=== PATIENT | female | born 1985 ===

== ENCOUNTER 2020-02-13 10:23 | Outpatient (REF) | payer OTHER, SELFPAY | END 2020-02-13 10:24 | disposition home or self-care (01) | LOC: HO.LAB 10:23 | PROVIDERS: Visit Provider Internal Medicine | DX: Z20.828 Contact with and (suspected) exposure to other viral communicable diseases (principal) | CPT/HCPCS: C9803; U0003 ==

== ENCOUNTER 2021-11-02 08:11 | Emergency (ER) | payer OTHER, SELFPAY ==
--- NOTE | ~2021-11-02 | CT_ITS ---
EXAMINATION: CT SOFT TISSUE NECK WITH CONTRAST CLINICAL INFORMATION: Right-sided tonsillar swelling and pain. Question abscess. COMPARISON: None TECHNIQUE: Following the administration of 100 mL of Omnipaque 300 intravenous contrast, helical imaging was performed in the axial plane with generation of coronal and sagittal reformatted images. This CT examination was performed using dose optimization techniques as appropriate, variously including the following: *Automated exposure control *Adjustment of mA and/or kV according to patient size (this includes techniques or standardized protocols for targeted exams where dose is matched to indication/reason for exam; i.e. extremities or head) *Use of iterative reconstruction technique DLP: 1255 mGy-cm FINDINGS: The palatine tonsils appear hyperemic but without fluid collection to suggest peritonsillar abscess. Bilateral palatine tonsilloliths are noted. The laryngeal contours appear normal. The vocal folds are symmetric. Enlarged reactive bilateral level 2A lymph nodes are seen. The parotid and submandibular glands appear normal. There is a subcentimeter nodule in the right lobe of the thyroid gland (below size threshold for dedicated ultrasound evaluation recommendation). The upper lungs are clear. Minimal degenerative changes are seen at the C6-C7 level. Imaged intracranial contents appear normal. The major neck vessels demonstrate normal enhancement. CT/CT soft tissue neck w IV con IMPRESSION: Mild hyperemia seen involving the palatine tonsils, which could represent cellulitis. No evidence of peritonsillar abscess. Reactive bilateral cervical lymphadenopathy at level IIa.
[2021-11-02 08:27] VITALS: BP 139/73; PULSE 78; RESP 18; TEMP 36.3; O2SAT 97; BMI 47.8
[2021-11-02 09:08] LABS: Strep A Nucleic Acid Negative (Negative)
--- NOTE | 2021-11-02 09:25 | ED.URI ---
HPI - URI/Sore Throat General Chief Complaint: Upper Respiratory Symptoms Stated Complaint: ? Strep Throat Time Seen by Provider: 11/02/21 09:19 Source: patient Mode of arrival: ambulatory Limitations: no limitations History of Present Illness HPI Narrative: Patient presents emergency department for evaluation of sore throat. Onset was 5 days ago. Has become increasingly worse. She is now having pain felt to right side of her jaw as well as the right ear. Reports history of similar pain in the past, her she needed to be admitted to [facility] for IV antibiotics and drainage. Has tried [id number] medications without significant improvement. Has associated fatigue as well. Denies fevers, chills, chest pain, palpitations, shortness of breath, difficulty breathing, nausea, vomiting, abdominal pain Related Data Previous Rx's Medication Instructions Recorded amoxicillin 500 mg capsule 500 mg PO Q12H 10 days #20 caps 11/02/21 Allergies Allergy/AdvReac Type Severity Reaction Status Date / Time No Known Allergies Allergy Unverified 10/29/19 19:29 Review of Systems Review of Systems: Constitutional: No fever. No chills. No weakness. Positive fatigue. ENT/ Mouth: Positive Ear Pain, no Nasal Congestion, positive sore throat, No Rhinorrhea, No Swallowing Difficulty Skin: No rash or itching. Cardiovascular: No chest pain. No palpitations. Respiratory: No shortness of breath. No cough. No sputum production. Gastrointestinal: No nausea. No vomiting. No diarrhea. No abdominal pain. Genitourinary: No burning micturition. No urinary frequency. Neurologic: No headache. No dizziness. No syncope. No numbness or tingling in the extremities. Musculoskeletal: No muscle pain. No back pain. No joint pain or stiffness. Yes all other systems are reviewed and are negative [facility] Past Medical History Attestation statement: The following information was validated with the patient. Source: old records reviewed Social History Social History Advance Directives: No Advance Directives Information Provided: No Physical Exam Vital Signs: Vital Signs: Last Vital Signs Temp 99.3 F 11/02/21 11:40 Pulse 76 11/02/21 11:40 Resp 18 11/02/21 11:40 BP 146/72 H 11/02/21 11:40 Pulse Ox 98 11/02/21 11:40 O2 Del Method 11/02/21 11:40 BMI result Body Mass Index 47.8 Vital signs have been reviewed as normal and appeared to be correct. Blood pressure normal.? Heart rate normal.? Respiration rate normal. Temperature normal.? Oxygen saturation normal. Appearance: Alert.?Oriented to person, place and time. No acute distress.?Normal affect. Eyes: Pupils equal, round and reactive to light.? ENT: TM normal bilaterally. Pharynx erythematous, right tonsillar hypertrophy 3+ with white exudate, mild midline uvula deviation towards the left? Neck: Normal inspection.? Neck supple.??Positive cervical adenopathy CVS: Heart sounds normal. Normal heart rate and rhythm.? Pulses normal.?? Respiratory: No respiratory distress.? Lung sounds clear to auscultation bilaterally?? Abdomen: Soft and non-tender. Normoactive bowel sounds. Skin: Skin warm and dry.? Normal skin color.? ? Extremities: No lower extremity edema.? Neuro: Moves all extremities spontaneously. Sensation intact bilaterally. No motor deficits. Ambulates with normal steady gait. Course Course Course Narrative: Patient is a 36-year-old female presenting to emergency department for evaluation of a sore throat. Group a strep testing was negative. Given presence of tonsillar hypertrophy and exudate suspect bacterial infection at this time, will obtain CT of the soft tissues of neck to exclude peritonsillar/retropharyngeal abscess. Basic labs to be obtained, will trial Decadron oral liquid for pain at this time. Disposition pending results. Reevaluation(s) Reevaluation #1: CBC reveals no leukocytosis. CMP is unremarkable. CT reveals no evidence of peritonsillar abscess. Discussed these findings with patient. Advise for plan of care for discharge home, treatment with amoxicillin twice daily, acetaminophen/ibuprofen as needed for pain. Reviewed worrisome signs and symptoms return back to emergency department for. All questions were answered, patient was discharged home in stable condition. MDM - URI/Sore Throat Medical Records Attestation: I reviewed the patient's medical records. Lab Data Attestation: I reviewed the patient's lab results. Result diagrams: 11/02/21 10:34 11/02/21 10:34 Labs: Lab Results 11/02/21 11/02/21 11/02/21 Range/Units 08:35 10:34 10:34 WBC 7.8 (4.8-10.8) X10*3/uL RBC 4.74 (4.20-5.50) X10*6/uL Hgb 14.5 (12.0-16.0) g/dl Hct 43.6 (37.0-47.0) % MCV 92.0 (80.0-98.0) fL MCH 30.6 (27.0-33.0) pg MCHC 33.3 (31.0-35.0) g/dl RDW 12.9 (11.0-16.0) % Plt Count 229 (160-400) X10*3/uL MPV 10.3 (9.4-12.3) fL Immature Gran % (Auto) 0.5 H (0.0-0.4) % Neut % (Auto) 78.6 H (45-73) % Lymph % (Auto) 12.5 L (20-40) % [place] % (Auto) 6.6 (2-11) % Eos % (Auto) 1.5 (0-4) % Baso % (Auto) 0.3 (0-2) % Lymph # (Auto) 1.0 L (1.2-4.9) X10*3/uL [place] # (Auto) 0.5 (0.1-1.2) X10*3/uL Eos # (Auto) 0.1 (0.0-0.4) X10*3/uL Baso # (Auto) 0.0 (0.0-0.2) X10*3/uL Abs Immat Gran (auto) 0.04 H (0.00-0.03) X10*3/uL Absolute Neuts (auto) 6.1 (2.0-8.3) x10*3/uL Absolute Nucleated RBC 0.000 (0.0-0.012) X10*3/uL Nucleated RBC % (auto) 0.0 (0.0-0.2) /100WBC Sodium 138 (135-145) mmol/L Potassium 4.2 (3.3-5.1) mmol/L Chloride 103 (96-108) mmol/L Carbon Dioxide 25 (22-29) mmol/L Anion Gap 14 (12-20) BUN 8 L (9-16) mg/dL Creatinine 0.81 (0.5-1.4) mg/dL Estim Creat Clear Calc 121.9 Estimated GFR > 60 Random Glucose 102 (60-115) mg/dL Calcium 8.9 (8.4-10.2) mg/dL Total Bilirubin 0.5 (0.0-1.0) mg/dL AST 18 (5-31) U/L ALT 21 (0-31) U/L Alkaline Phosphatase 114 (39-117) U/L Total Protein 7.1 (6.5-8.0) g/dL Albumin 4.1 (3.5-5.0) g/dL Beta HCG, Quant mIU/mL S. pyogenes GrpA [place] Negative (Negative) 11/02/21 Range/Units 10:34 WBC (4.8-10.8) X10*3/uL RBC (4.20-5.50) X10*6/uL Hgb (12.0-16.0) g/dl Hct (37.0-47.0) % MCV (80.0-98.0) fL MCH (27.0-33.0) pg MCHC (31.0-35.0) g/dl RDW (11.0-16.0) % Plt Count (160-400) X10*3/uL MPV (9.4-12.3) fL Immature Gran % (Auto) (0.0-0.4) % Neut % (Auto) (45-73) % Lymph % (Auto) (20-40) % [place] % (Auto) (2-11) % Eos % (Auto) (0-4) % Baso % (Auto) (0-2) % Lymph # (Auto) (1.2-4.9) X10*3/uL [place] # (Auto) (0.1-1.2) X10*3/uL Eos # (Auto) (0.0-0.4) X10*3/uL Baso # (Auto) (0.0-0.2) X10*3/uL Abs Immat Gran (auto) (0.00-0.03) X10*3/uL Absolute Neuts (auto) (2.0-8.3) x10*3/uL Absolute Nucleated RBC (0.0-0.012) X10*3/uL Nucleated RBC % (auto) (0.0-0.2) /100WBC Sodium (135-145) mmol/L Potassium (3.3-5.1) mmol/L Chloride (96-108) mmol/L Carbon Dioxide (22-29) mmol/L Anion Gap (12-20) BUN (9-16) mg/dL Creatinine (0.5-1.4) mg/dL Estim Creat Clear Calc Estimated GFR Random Glucose (60-115) mg/dL Calcium (8.4-10.2) mg/dL Total Bilirubin (0.0-1.0) mg/dL AST (5-31) U/L ALT (0-31) U/L Alkaline Phosphatase (39-117) U/L Total Protein (6.5-8.0) g/dL Albumin (3.5-5.0) g/dL Beta HCG, Quant < 2 mIU/mL S. pyogenes GrpA [place] (Negative) Imaging Data ct neck: Radiologist's impression: CT/CT soft tissue neck w IV con IMPRESSION:? Mild hyperemia seen involving the palatine tonsils, which could represent cellulitis. No evidence of peritonsillar abscess. Reactive bilateral cervical lymphadenopathy at level IIa. Discharge Plan Discharge Clinical Impression: Pharyngitis Patient Disposition: Home, Self-Care Instructions: Pharyngitis (ED) Additional Instructions: CT scan was normal, no evidence of an abscess or pus collection. You can take ibuprofen 200 mg, 3 tablets (600mg) every 6-8 hours as needed for pain, in addition to Tylenol 500 mg, 2 tablets (1,000mg) every 4-6 hours as needed for pain, but not to exceed 3 doses daily (3,000mg).? Please complete the entire course of antibiotic as prescribed. Return to emergency department any new or worsening symptoms or concerns. Follow up with her primary care provider as needed. Prescriptions: New amoxicillin 500 mg capsule 500 mg PO Q12H 10 Days Qty: 20 0RF
[2021-11-02] MEDS: dexAMETHasone sod phosphate 10 MG/ML VIAL PO (09:46)
[2021-11-02 10:45] LABS: MANUAL DIFF FLAG NO
[2021-11-02 10:46] LABS: Basophils Percent Auto 0.3 % (0-2); Eosinophils Absolute Auto 0.1 X10*3/uL (0.0-0.4); Eosinophils Percent Auto 1.5 % (0-4); Hematocrit 43.6 % (37.0-47.0); Hemoglobin 14.5 g/dl (12.0-16.0); Imm Gran Abs Auto 0.04 X10*3/uL (0.00-0.03); Imm Gran Pct Auto 0.5 % (0.0-0.4); Lymphocytes Percent Auto 12.5 % (20-40); Mean Corpuscular HGB Conc 33.3 g/dl (31.0-35.0); Mean Corpuscular Hemoglobin 30.6 pg (27.0-33.0); Mean Platelet Volume 10.3 fL (9.4-12.3); Monocytes Absolute Auto 0.5 X10*3/uL (0.1-1.2); Monocytes Percent Auto 6.6 % (2-11); Neutrophils Absolute Auto 6.1 x10*3/uL (2.0-8.3); Neutrophils Percent Auto 78.6 % (45-73); Platelet Count 229 X10*3/uL (160-400); Red Blood Count 4.74 X10*6/uL (4.20-5.50); Red Cell Distribution Width 12.9 % (11.0-16.0); White Blood Count 7.8 X10*3/uL (4.8-10.8)
[2021-11-02 11:03] LABS: Alanine Aminotransferase 21 U/L (0-31); Albumin Level 4.1 g/dL (3.5-5.0); Alkaline Phosphatase 114 U/L (39-117); Anion Gap 14 (12-20); Aspartate Amino Transferase 18 U/L (5-31); Bilirubin Total 0.5 mg/dL (0.0-1.0); Blood Urea Nitrogen 8 mg/dL (9-16); Calcium 8.9 mg/dL (8.4-10.2); Carbon Dioxide 25 mmol/L (22-29); Chloride 103 mmol/L (96-108); Creatinine Clr Calc Pharmacy 121.9; Estimated Glomerular Filt Rate > 60; Glucose Random 102 mg/dL (60-115); Potassium 4.2 mmol/L (3.3-5.1); Sodium 138 mmol/L (135-145); Total Protein 7.1 g/dL (6.5-8.0)
[2021-11-02 11:09] LABS: HCG Quantitative < 2 mIU/mL
[2021-11-02 11:40] VITALS: BP 146/72; PULSE 76; RESP 18; TEMP 37.4; O2SAT 98
[2021-11-02] MEDS: iohexoL 350 MG/ML 100 ML INFUS..BTL IV (11:43)
== END 2021-11-02 12:38 | disposition home or self-care (01) ==
PROVIDERS: Nurse Practitioner Family; Emergency Provider Emergency Medicine
DX: J02.9 Acute pharyngitis, unspecified (principal); M54.2 Cervicalgia; Z20.822 Contact with and (suspected) exposure to COVID-19; Z79.899 Other long term (current) drug therapy
CPT/HCPCS: 36415; 70491; 80053; 84702; 85025; 87651; 99282; 99284; J1100; Q9967

== ENCOUNTER 2022-12-26 15:34 | Emergency (ER) | payer MEDICAID, SELFPAY ==
[2022-12-26 16:06] VITALS: BP 144/73; PULSE 80; RESP 16; TEMP 36.3; O2SAT 94; BMI 50.3
--- NOTE | 2022-12-26 16:07 | ED_ITS ---
HPI - Fall General Chief Complaint: Dizziness Stated Complaint: fell down stairs Time Seen by Provider: 12/26/22 16:24 Source: patient Mode of arrival: ambulatory Limitations: no limitations History of Present Illness HPI Narrative: patient is a 37-year-old female Who presents emergency department for evaluation. She reports aunt 12/09/2022 she fell down 1 flight of stairs, approximately 20 stairs. She states that she lost her slipper on the top stair resulting in her tumbling forward. She denies any loss of consciousness. She initially was experiencing right ankle pain which has since resolved and she has been ambulatory with a steady gait. She reports that after a fall she was experiencing a headache and dizziness described as a urine off balance approximately 1 time per week since then. Yesterday her headache was more constant throughout the day and her dizziness. At this time, she denies having any symptoms, reporting that they resolved just before she arrived to the emergency department. She does express concerns of potential , reporting her last menstrual period to be 11/15/2022, she is a G2, P1. At this time she denies headache, dizziness, lightheadedness, vision changes, neck pain, neck stiffness, chest pain, shortness of breath difficulty breathing, nausea, vomiting, numbness or tingling of the extremities, bladder bowel dysfunction, genitourinary symptoms no abnormal vaginal bleeding, Weakness. Related Data Previous Rx's Medication Instructions Recorded amoxicillin 500 mg capsule 500 mg PO Q12H 10 days #20 caps 11/02/21 Allergies Allergy/AdvReac Type Severity Reaction Status Date / Time No Known Allergies Allergy Unverified 10/29/19 19:29 Review of Systems Review of Systems: Yes all other systems are reviewed and are negative [facility] Past Medical History Attestation statement: The following information was validated with the patient. Source: old records reviewed Social History Social History Alcohol intake: current Alcohol intake frequency: a few times a week Smoked in Last 30 Days: No Use of substances other than those prescribed or required for medical reasons: Yes Substance Use Type: Marijuana Advance Directives: No Advance Directives Information Provided: No Physical Exam Vital Signs: Vital Signs: Last Vital Signs Temp 97.3 F 12/26/22 16:06 Pulse 62 11/15/23 16:56 Resp 16 12/26/22 16:06 BP 117/63 12/26/22 16:56 Pulse Ox 94 12/26/22 16:06 O2 Del Method Room Air 12/26/22 16:06 BMI result Body Mass Index 50.3 Appearance: Alert.?Oriented to person, place and time. No acute distress.?Normal affect. Eyes: Pupils equal, round and reactive to light.? ENT: Pharynx normal.?? Neck: Normal inspection.? Neck supple.?? CVS: Heart sounds normal. Normal heart rate and rhythm.? Pulses normal.?? Respiratory: No respiratory distress.? Lung sounds clear to auscultation bilaterally?? Abdomen: Soft and non-tender. Normoactive bowel sounds. ? Skin: Skin warm and dry.? Normal skin color.? Extremities: No lower extremity edema.? No calf ttp? Neuro: Moves all extremities spontaneously. Sensation intact bilaterally. CN II- XII intact. No focal neuro deficits. Ambulates with normal steady gait. Course Course Course Narrative: RME: 37yo F w/no sig PMHx c/o intermittent MORENO & dizziness s/p mechanical trip and fall down 1 flight of stairs (about 20 stairs) on Dec 09. States slipped on slippers. LMP last month, patient states she may also be . Ur preg, UA & orthostatics ordered Full HPI, ROS and PE to be performed by primary ED provider. Medical Decision Making Medical Decision Making MDM Narrative: Patient is a 37-year-old female who presents emergency department for evaluation of intermittent headache and dizziness s/p mechanical fall 2 weeks ago. We discussed other possibilities of dizziness including anemia, arrhythmia, CVA, dissection, PE, electrolyte abnormality, currently she declines to have any serum labs obtained, and she is currently asymptomatic. the symptoms that she describes have been nonexertional, without palpitations, no associated echo pain, neurological complaints, shortness of breath, chest pain, or back or abdominal pain. At this time she has no focal neurological deficits. testing was obtained which is negative. Urinalysis is without evidence of infection a. The a at this time feel that she is stable for discharge home, we discussed concussion management and expectations normal reviewed worrisome signs and symptoms that would warrant re-evaluation in the emergency department, advised outpatient follow-up with PCP. Differential Diagnosis Differential Diagnoses: The differential diagnosis associated with the presentation includes ( Head injury, concussion, , less likely ICH / SDH /intracranial mass.) Lab Data MDM Lab Attestation statement: I reviewed the patient's lab results. ( See narrative above) Labs: Lab Results 12/26/22 Range/Units 16:43 Urine Color Yellow Urine Appearance Clear Urine pH 8.0 (5.0-9.0) Ur Specific [place] 1.025 (1.005-1.025) Urine Protein Negative (Neg-Trace) mg/dL Urine Glucose (UA) Negative (Negative) mg/dL Urine Ketones Negative (Negative) mg/dL Urine Blood Negative (Negative) Urine Nitrite Negative (Negative) Ur Leukocyte Esterase Trace H (Negative) Urine RBC 0-2 (0-2) /HPF Urine WBC 0-5 (0-5) /HPF Ur Squamous Epith Cells 11-20 (0-2) /HPF Urine Bacteria 1+ (None Seen) Hyaline Casts 0-2 (0-2) /LPF Urine Test NEGATIVE (NEGATIVE) External Record Review External record reviewed: Outpatient record Tests considered The following testing was considered but not selected: see narrative above for further details Prescription Management I considered prescription management with: Pain Medication ( acetaminophen/ibuprofen) Discharge Plan Discharge Clinical Impression: Concussion Qualifiers: Encounter type: initial encounter Loss of consciousness presence/duration: without LOC Qualified Code(s): S06.0X0A - Concussion without loss of consciousness, initial encounter Patient Disposition: Home, Self-Care Instructions: Concussion (ED), Post Concussion Syndrome (ED), Chronic Post Traumatic Headache (ED) Additional Instructions: testing today is negative. Please review the instructions regarding concussion. Follow-up with your primary care provider. Return back to the emergency department with any new or worsening symptoms or concerns. Prescriptions: No Action amoxicillin 500 mg capsule 500 mg PO Q12H 10 Days Qty: 20 0RF Referrals: Physician,None [Primary Care Provider] -
[2022-12-26 16:10] VITALS: BP 121/44; PULSE 74
--- NOTE | 2022-12-26 16:32 | PC.NURSE ---
Patient reports she fell backwards down the stairs on and has on and off again dizziness since than . States has had headache since the fall but denies blurry vision or vomiting. Reports nausea that also comes and goes.
[2022-12-26 16:54] LABS: Appearance Urine Clear; Color Urine Yellow; Glucose Urine UA Negative (Negative); Leukocyte Esterase Urine Trace (Negative); Nitrite Urine Negative (Negative); Specific Gravity - Urine 1.025 (1.005-1.025); UMIC TRIGGER UACC YES; Urine Blood Negative (Negative); Urine Ketones Negative (Negative); Urine Protein Negative (Neg-Trace)
[2022-12-26 16:55] VITALS: BP 127/58; PULSE 68
[2022-12-26 16:55] LABS: UPreg QC Valid YES; Urine Pregnancy NEGATIVE (NEGATIVE)
[2022-12-26 16:56] VITALS: BP 117/63; PULSE 62
[2022-12-26 16:59] LABS: Bacteria Urine 1+ (None Seen); Hyaline Casts Urine 0-2 /LPF (0-2); RBC Urine 0-2 /HPF (0-2); WBC Urine 0-5 /HPF (0-5)
== END 2022-12-26 17:38 | disposition home or self-care (01) ==
PROVIDERS: Physician Assistant; Emergency Provider Emergency Medicine
DX: S06.0X0A Concussion without loss of consciousness, initial encounter (principal); W10.9XXA Fall (on) (from) unspecified stairs and steps, initial encounter; Y93.9 Activity, unspecified; Y92.9 Unspecified place or not applicable; Y99.9 Unspecified external cause status
CPT/HCPCS: 81001; 81025; 99283; 99284

== ENCOUNTER 2024-01-06 21:11 | Emergency (ER) | payer OTHER, SELFPAY ==
--- NOTE | ~2024-01-06 | XR_ITS ---
EXAMINATION: XR CHEST CLINICAL INFORMATION: rib pain COMPARISON: None available. TECHNIQUE: 2 views of the chest were obtained. FINDINGS: No significant abnormality is noted involving the heart, lungs, mediastinum, bony thorax or soft tissues. XR/XR chest 2V IMPRESSION: Unremarkable examination. Electronically signed by: Peyman Roberts MD 01/07/2024 02:10 AM [facility]
[2024-01-06 21:18] VITALS: BP 154/91; PULSE 84; RESP 20; TEMP 36.5; O2SAT 94; BMI 57.2
--- NOTE | 2024-01-06 21:41 | MHC.EDTECH ---
pt refused SARS/FLU/RSV nasal swab test, was able to obtain strep swab test, construction estimator made aware
--- NOTE | 2024-01-06 21:47 | PC.NURSE ---
at this time pt refusing SARS swab reports i do not have covid, i just want an xray
[2024-01-06 21:54] LABS: IDNOW Serial# 08D9AD1C; Strep A Nucleic Acid Negative (Negative)
[2024-01-07 01:06] VITALS: BP 149/83; PULSE 72; RESP 16; TEMP 36.7; O2SAT 97
[2024-01-07] MEDS: Ibuprofen 600 MG TABLET PO (01:07)
[2024-01-07] MEDS: dexAMETHasone sod phosphate 4 MG/ML VIAL 8 MG PO (01:08)
[2024-01-07 01:12] LABS: Appearance Urine Clear; Color Urine Yellow; Glucose Urine UA Negative (Negative); Leukocyte Esterase Urine Negative (Negative); Nitrite Urine Negative (Negative); PH 6.5 (5.0-9.0); Specific Gravity - Urine 1.025 (1.005-1.025); Urine Blood Negative (Negative); Urine Ketones Negative (Negative); Urine Protein Negative (Neg-Trace)
[2024-01-07 01:14] LABS: Bacteria Urine None Seen (None Seen); Hyaline Casts Urine 0-2 /LPF (0-2); RBC Urine 0-2 /HPF (0-2); Squamous Epithelial Cell Urine 0-2 /HPF (0-2); WBC Urine 0-5 /HPF (0-5)
--- NOTE | 2024-01-07 01:19 | ED_ITS ---
HPI - URI/Sore Throat General Chief Complaint: Upper Respiratory Symptoms Stated Complaint: neck pain Time Seen by Provider: 01/07/24 00:37 Source: patient Mode of arrival: ambulatory Limitations: no limitations History of Present Illness ED Provider: NAM MCKNIGHT Narrative: 38 yo female with no sig PMH here with c/o throat pain x 1 week ago and she feels the pain in the L neck and it radiates up and down the head and shoulder area. She states it hurts to swallow. No trauma. She feels her voice is raspy. She has not taken any OTC medications. She reports no travel or sick contacts. MD elicited complaint: sore throat Onset (ago): week(s) (1) Consistency: progressively worsening Severity: moderate Description of mucous: clear Able to tolerate fluids by mouth: Yes Exacerbating factors: swallowing and speaking Relieving factors: nothing Associated symptoms: voice changes, headache, sore throat and stiff neck Treatments prior to arrival: none Related Data Previous Rx's ?Medication ?Instructions ?Recorded amoxicillin 500 mg capsule 500 mg PO Q12H 10 days #20 caps 11/02/21 amoxicillin 500 mg capsule 500 mg PO BID 7 days #14 caps 01/07/24 Allergies Allergy/AdvReac Type Severity Reaction Status Date / Time No Known Allergies Allergy Verified 01/06/24 21:21 Review of Systems Review of Systems: Constitutional : No Fever, No Chills, No Fatigue ENT/Mouth : pos sore throat, No Rhinorrhea Eyes: No Eye Pain, No Swelling, No Redness Cardiovascular : No Chest Pain, No SOB, No Dyspnea on Exertion Respiratory : No Cough, No Sputum Gastrointestinal : No Nausea, No Vomiting, No Diarrhea, No abdominal Pain Genitourinary : No Dysuria, No Urinary Frequency, No Hematuria, Musculoskeletal : No joint pain, No Myalgias, No Joint Swelling Skin : No Skin Lesions, No rash Neuro : No Weakness, No Numbness, No Dizziness, positive Headache Psych : No Anxiety/Panic, No Depression Heme/Lymph: No Bruising, No Bleeding,No Lymphadenopathy All other systems reviewed and are negative [facility] Past Medical History Attestation statement: The following information was validated with the patient. Source: old records reviewed Medical History (Updated 01/07/24 @ 02:19 by Heather Sales DO) No pertinent past medical history Social History Social History (Reviewed 01/07/24 @ 01:24 by GIO [place] Alcohol intake: current Alcohol intake frequency: holidays/special occasions only Substance Use Type: Marijuana Advance Directives: No Advance Directives Information Provided: No Do you have a plan to hurt others: No Plan Physical Exam 2 Vital Signs: Vital Signs: Last Vital Signs Temp 98.0 F 01/07/24 01:06 Pulse 72 01/07/24 01:06 Resp 16 01/07/24 01:06 BP 149/83 H 01/07/24 01:06 Pulse Ox 97 01/07/24 01:06 O2 Del Method Room Air 01/07/24 01:06 BMI result Body Mass Index 57.2 Appearance: Alert. Oriented X3. No acute distress. Eyes: Pupils equal, round and reactive to light. ENT: Pharynx very mild erythema no exudates tonsils are normal - normal voice, tolerating secretions, no sublingual or submandibular swelling there is no mass felt anywhere on the neck no lymph nodes she has no signs of rash - the exam of the neck and supraclavicular area is normal, bilateral TMS normal Neck: Normal inspection. Neck supple. CVS: Normal heart rate and rhythm. Pulses normal. Respiratory: No respiratory distress. Breath sounds normal. Abdomen: Soft and nontender. Skin: Skin warm and dry. Normal skin color. Normal skin turgor. Extremities: No lower extremity edema. No calf ttp Neuro: Oriented X 3. No motor deficit. No sensory deficit. Medications Administered Discontinued Medications Generic Name Dose Route Start Last Admin Trade Name Freq PRN Reason Stop Dose Admin Dexamethasone Sodium Phosphate 8 mg 01/07/24 00:57 01/07/24 01:08 Dexamethasone Sod Phosphate 4 Mg/Ml Vial PO 01/07/24 00:58 8 mg ONCE ONE Administration Ibuprofen 600 mg 01/07/24 00:57 01/07/24 01:07 Ibuprofen 600 Mg Tablet PO 01/07/24 00:58 600 mg ONCE ONE Administration Medical Decision Making Medical Decision Making [facility] Narrative: 38 yo female here with sore throat and neck pain x 1 week - at this time there is no external swelling, no lymph nodes, no ropy cord there is no signs of deeper space infection on exam she has normal ROM there is no fullness or assym etry to the neck. I do not expect abscess, DVT, ludwigs, deeper space infection, [employer] - will obtain CXR, strep and UA start on ibuprofen. Differential Diagnosis Differential Diagnoses: The differential diagnosis associated with the presentation includes tonsillitis, MSK pain, viral syndrome Admission/Observation Consideration of admission/observation: Escalation of care including admission/observation considered not toxic, UA and CXR negative stable for DC Lab Data [facility] Lab Attestation statement: I reviewed the patient's lab results. Labs: Lab Results 01/06/24 01/07/24 Range/Units 21:34 01:05 Urine Color Yellow Urine Appearance Clear Urine pH 6.5 (5.0-9.0) Ur Specific [place] 1.025 (1.005-1.025) Urine Protein Negative (Neg-Trace) mg/dL Urine Glucose (UA) Negative (Negative) mg/dL Urine Ketones Negative (Negative) mg/dL Urine Blood Negative (Negative) Urine Nitrite Negative (Negative) Ur Leukocyte Esterase Negative (Negative) Urine RBC 0-2 (0-2) /HPF Urine WBC 0-5 (0-5) /HPF Ur Squamous Epith Cells 0-2 (0-2) /HPF Urine Bacteria None Seen (None Seen) Hyaline Casts 0-2 (0-2) /LPF Urine Test NEGATIVE (NEGATIVE) S. pyogenes GrpA [place] Negative (Negative) Independent Interpretation I performed an independent interpretation of an: Plain X-Ray (normal) Radiology Impression Discussion of test interpretation with radiology: I have reviewed the radiologist's reading. Prescription Management I considered prescription management with: Antibiotic and Other Discharge Plan Discharge Clinical Impression: Upper respiratory infection Qualifiers: URI type: unspecified URI Qualified Code(s): J06.9 - Acute upper respiratory infection, unspecified Acute tonsillitis Qualifiers: Pharyngitis/tonsillitis etiology: unspecified etiology Qualified Code(s): J03.90 - Acute tonsillitis, unspecified Patient Disposition: Home, Self-Care Instructions: Pharyngitis (ED), Tonsillitis (ED) Additional Instructions: urine normal test negative strep test negative chest xray normal please return for any worsening symptoms or concerns - monitor symptoms closely Prescriptions: New amoxicillin 500 mg capsule 500 mg PO BID 7 Days Qty: 14 0RF No Action amoxicillin 500 mg capsule 500 mg PO Q12H 10 Days Qty: 20 0RF Print Language: Bahraini
--- NOTE | 2024-01-07 01:21 | PC.NURSE ---
pt medicated per mar, pt resting in stretcher on cell phone, pt able to answer question clearly, no sign of respiratory distress.
[2024-01-07 01:23] LABS: UPreg QC Valid YES; Urine Pregnancy NEGATIVE (NEGATIVE)
--- NOTE | 2024-01-07 02:54 | PC.NURSE ---
Pt a&o, no sob or chest pain, pt able to speak in full sentences, reviewed discharge instruction with pt. pt verbalized understanding, no sign of distress, steady gait upon discharge
[2024-01-07 02:55] VITALS: BP 145/80; PULSE 74; RESP 16; TEMP 36.6; O2SAT 98
== END 2024-01-07 02:56 | disposition home or self-care (01) ==
PROVIDERS: Emergency Provider Emergency Medicine
DX: J06.9 Acute upper respiratory infection, unspecified (principal); J03.90 Acute tonsillitis, unspecified; R07.81 Pleurodynia; R07.0 Pain in throat
CPT/HCPCS: 71046; 81001; 81025; 87651; 99283; 99284; J1100

== ENCOUNTER 2024-03-26 17:22 | Emergency (ER) | payer OTHER, SELFPAY ==
[2024-03-26 17:43] VITALS: BP 149/97; PULSE 87; RESP 18; TEMP 37; O2SAT 95; BMI 57.9
--- NOTE | 2024-03-26 17:44 | ED.GENADULT ---
HPI - General Adult General Chief complaint: Upper Respiratory Symptoms Stated complaint: hurts to talk/swollen gland? Time Seen by Provider: 03/26/24 17:44 History of Present Illness ED Provider: Guzman MCKNIGHT narrative: The patient is a 39-year-old female who has felt unwell for about 4 or 5 days. She has had a variety of different kinds of pains in her mouth and in her neck. She has tested positive for the flu. The patient says that approximately 2 years ago she was hospitalized at [facility] when she had the flu. She says at that time she also had an abscess in her neck. She says that the symptoms today feel similar to what happened last time although they are not as severe as last time. No definite fevers. Related Data Previous Rx's ?Medication ?Instructions ?Recorded amoxicillin 500 mg capsule 500 mg PO Q12H 10 days #20 caps 11/02/21 amoxicillin 500 mg capsule 500 mg PO BID 7 days #14 caps 01/07/24 ibuprofen 400 mg tablet 400 mg PO Q6H PRN pain #14 tabs 03/27/24 Allergies Allergy/AdvReac Type Severity Reaction Status Date / Time No Known Allergies Allergy Verified 03/26/24 17:47 Review of Systems Review of Systems: Yes all other systems are reviewed and are negative REPLACED BY [facility] Past Medical History Medical History (Updated 03/28/24 @ 00:00 by Yousif Soto) No pertinent past medical history Social History Social History Alcohol intake: current Alcohol intake frequency: holidays/special occasions only Substance Use Type: Marijuana Advance Directives: No Advance Directives Information Provided: Yes Do you have a plan to hurt others: No Plan Physical Exam ED Vital Signs: Vital Signs - 24 hr 03/26/24 17:43 Temperature 98.6 F Pulse Rate 87 Respiratory Rate 18 Blood Pressure 149/97 H Pulse Oximetry 95 Oxygen Delivery Method Room Air BMI result Body Mass Index 57.9 Const Other: the patient is awake and alert with no obvious signs of distress. She does not appear short of breath. She is handling her secretions. Her voice is not obviously abnormal. HENMT Other: The appearance of the face unremarkable. No obvious swelling. There is no trismus. Posterior pharynx is unremarkable without significant erythema or soft tissue swelling. Eyes General: appearance normal, both eyes and all related structures Neck Other: No significant cervical adenopathy. She is moving her neck easily. No stridor. Resp Effort & Inspection: normal respiratory effort Auscultation: clear to auscultation bilaterally Cardio Rate: regular rate Rhythm: regular rhythm Heart sounds: S1 normal heart sound present and S2 normal heart sound present Skin Other: Skin is dry and unremarkable. No changes to the skin of the face or the neck. Neuro Other: The patient is awake and alert with normal mental status. Cranial nerves are intact. Speech is not obviously abnormal. She is handling her secretions well. She moves her extremities normally and appropriately. Extrem Other: No peripheral edema Course Course Course Narrative: This is a rapid medical exam performed by Nica Clifford NP: Additional HPI, ROS, PE not included below will be deferred to primary provider. Patient is a 39-year-old female presenting with 2 days of sore throat, painful swallowing. Denies fevers. Plan: strep and viral swabs Medications Administered Discontinued Medications Generic Name Dose Route Start Last Admin Trade Name Matteoq PRN Reason Stop Dose Admin Acetaminophen 975 mg 03/27/24 02:10 03/27/24 02:24 Acetaminophen 325 Mg Tablet PO 03/27/24 02:11 975 mg ONCE ONE Administration Dexamethasone 8 mg 03/27/24 02:10 03/27/24 02:23 Dexamethasone 4 Mg Tablet PO 03/27/24 02:11 8 mg ONCE ONE Administration Ketorolac Tromethamine 30 mg 03/27/24 02:10 03/27/24 02:23 Ketorolac Tromethamine 30 Mg/Ml Vial IM 03/27/24 02:11 30 mg ONCE ONE Administration Medical Decision Making Medical Decision Making [facility] Narrative: the patient is a 39-year-old woman who presents with symptoms that have lasted for about 2 days. Her symptoms seem primarily to be respiratory symptoms and sore throat. She has a negative rapid strep. She has a positive influenza swab. The patient reports a history of some kind of neck abscess in the past. Whether this was a peritonsillar abscess or some other kind of neck abscess I am not sure. At the moment I do not have any high suspicion for a significant soft tissue swelling in the patient's neck or airway generally. She seems to be tolerating secretions without difficulty and her voice is not hot potato voice. Her CBC shows a normal white count and normal differential which I find also reassuring. I suspect that her symptoms are probably all related to her influenza. She will be given a single dose of dexamethasone. Otherwise she will be advised to use ibuprofen and acetaminophen for her discomfort. She should return if worse. Lab Data 03/26/24 20:09 03/26/24 20:09 Labs: Lab Results 03/26/24 03/26/24 03/27/24 Range/Units 17:48 20:09 01:44 WBC 7.3 (4.8-10.8) X10*3/uL RBC 4.86 (4.20-5.50) X10*6/uL Hgb 14.8 (12.0-16.0) g/dl Hct 43.1 (37.0-47.0) % MCV 88.7 (80.0-98.0) fL MCH 30.5 (27.0-33.0) pg MCHC 34.3 (31.0-35.0) g/dl RDW 13.3 (11.0-16.0) % Plt Count 256 (160-400) X10*3/uL MPV 10.2 (9.4-12.3) fL Immature Gran % (Auto) 0.1 (0.0-0.4) % Neut % (Auto) 64.9 (45-73) % Lymph % (Auto) 24.2 (20-40) % [place] % (Auto) 8.5 (2-11) % Eos % (Auto) 2.0 (0-4) % Baso % (Auto) 0.3 (0-2) % Lymph # (Auto) 1.8 (1.2-4.9) X10*3/uL [place] # (Auto) 0.6 (0.1-1.2) X10*3/uL Eos # (Auto) 0.2 (0.0-0.4) X10*3/uL Baso # (Auto) 0.0 (0.0-0.2) X10*3/uL Abs Immat Gran (auto) 0.01 (0.00-0.03) X10*3/uL Absolute Neuts (auto) 4.8 (2.0-8.3) x10*3/uL Absolute Nucleated RBC 0.000 (0.0-0.012) X10*3/uL Nucleated RBC % (auto) 0.0 (0.0-0.2) /100WBC Sodium 139 (135-145) mmol/L Potassium 3.7 (3.3-5.1) mmol/L Chloride 106 (96-108) mmol/L Carbon Dioxide 23 (22-29) mmol/L Anion Gap 14 (12-20) BUN 9 (9-16) mg/dL Creatinine 0.73 (0.5-1.4) mg/dL Estim Creat Clear Calc 143.0 Estimated GFR > 60 Random Glucose 88 (60-115) mg/dL Calcium 9.1 (8.4-10.2) mg/dL Total Bilirubin 0.3 (0.0-1.0) mg/dL AST 43 H (5-31) U/L ALT 55 H (0-31) U/L Alkaline Phosphatase 113 (39-117) U/L Total Protein 8.1 H (6.5-8.0) g/dL Albumin 4.2 (3.5-5.0) g/dL Urine Test NEGATIVE (NEGATIVE) Influenza Type A (PCR) POSITIVE A (Negative) Influenza Type B (PCR) NEGATIVE (Negative) RSV RNA Qual (PCR) NEGATIVE (Negative) SARS-CoV-2 RNA (RT-PCR) NEGATIVE (Negative) S. pyogenes GrpA [place] Negative (Negative) Discharge Plan Discharge Clinical Impression: Influenza, Acute viral pharyngitis Patient Disposition: Still a Patient Instructions: Pharyngitis (ED), Influenza (DC) Additional Instructions: You have tested positive for the flu today. I think this is causing a very bad sore throat. I think it is unlikely that you have an abscess on this occasion. You received a dose of a steroid medication, dexamethasone, which I hope will reduce inflammation in your throat and make you feel somewhat better. You may take ibuprofen and acetaminophen as needed for discomfort. Please stay in touch with your regular doctor's office for additional advice as needed. Return to the emergency room if you feel significantly worse. Prescriptions: New ibuprofen 400 mg tablet 400 mg PO Q6H PRN (Reason: pain) Qty: 14 0RF No Action amoxicillin 500 mg capsule 500 mg PO Q12H 10 Days Qty: 20 0RF amoxicillin 500 mg capsule 500 mg PO BID 7 Days Qty: 14 0RF Referrals: Von Cintron MD [Physician] - Interventions: ED Discharge Assessment Last Done: 03/27/24 02:37 Discharge Date/Time: 03/27/24 02:41 Print Language: Serbian
[2024-03-26 18:03] LABS: IDNOW Serial# 58CA691E; Strep A Nucleic Acid Negative (Negative)
[2024-03-26 18:30] LABS: Influenza A PCR POSITIVE (Negative); Influenza B PCR NEGATIVE (Negative); Resp Syncy Virus RNA Qual PCR NEGATIVE (Negative); SARS COV2 PCR INHOUSE NEGATIVE (Negative)
[2024-03-26 20:12] LABS: MANUAL DIFF FLAG NO
[2024-03-26 20:17] LABS: Basophils Percent Auto 0.3 % (0-2); Eosinophils Absolute Auto 0.2 X10*3/uL (0.0-0.4); Hematocrit 43.1 % (37.0-47.0); Hemoglobin 14.8 g/dl (12.0-16.0); Imm Gran Abs Auto 0.01 X10*3/uL (0.00-0.03); Imm Gran Pct Auto 0.1 % (0.0-0.4); Lymphocytes Absolute Auto 1.8 X10*3/uL (1.2-4.9); Lymphocytes Percent Auto 24.2 % (20-40); Mean Corpuscular HGB Conc 34.3 g/dl (31.0-35.0); Mean Corpuscular Hemoglobin 30.5 pg (27.0-33.0); Mean Corpuscular Volume 88.7 fL (80.0-98.0); Mean Platelet Volume 10.2 fL (9.4-12.3); Monocytes Absolute Auto 0.6 X10*3/uL (0.1-1.2); Monocytes Percent Auto 8.5 % (2-11); Neutrophils Absolute Auto 4.8 x10*3/uL (2.0-8.3); Neutrophils Percent Auto 64.9 % (45-73); Platelet Count 256 X10*3/uL (160-400); Red Blood Count 4.86 X10*6/uL (4.20-5.50); Red Cell Distribution Width 13.3 % (11.0-16.0); White Blood Count 7.3 X10*3/uL (4.8-10.8)
[2024-03-26 20:27] LABS: Alanine Aminotransferase 55 U/L (0-31); Albumin Level 4.2 g/dL (3.5-5.0); Alkaline Phosphatase 113 U/L (39-117); Anion Gap 14 (12-20); Aspartate Amino Transferase 43 U/L (5-31); Bilirubin Total 0.3 mg/dL (0.0-1.0); Blood Urea Nitrogen 9 mg/dL (9-16); Calcium 9.1 mg/dL (8.4-10.2); Carbon Dioxide 23 mmol/L (22-29); Chloride 106 mmol/L (96-108); Estimated Glomerular Filt Rate > 60; Glucose Random 88 mg/dL (60-115); Potassium 3.7 mmol/L (3.3-5.1); Sodium 139 mmol/L (135-145); Total Protein 8.1 g/dL (6.5-8.0)
[2024-03-27 02:05] LABS: UPreg QC Valid YES; Urine Pregnancy NEGATIVE (NEGATIVE)
[2024-03-27] MEDS: dexAMETHasone 4 MG TABLET 8 MG PO (02:23)
[2024-03-27] MEDS: Ketorolac Tromethamine 30 MG/ML VIAL IM (02:23)
[2024-03-27] MEDS: Acetaminophen 325 MG TABLET 975 MG PO (02:24)
[2024-03-27 02:37] VITALS: BP 149/97; PULSE 87; RESP 18; TEMP 37; O2SAT 95
== END 2024-03-27 02:41 | disposition still patient (30) ==
PROVIDERS: Registered Nurse Emergency; Emergency Provider Emergency Medicine
DX: J10.1 Influenza due to other identified influenza virus with other respiratory manifestations (principal); Z79.899 Other long term (current) drug therapy; Z03.818 Encounter for observation for suspected exposure to other biological agents ruled out
CPT/HCPCS: 0241U; 36415; 80053; 81025; 85025; 87651; 96372; 99283; 99284; J1885; J8540